=== PATIENT | female | born 1950 | race Caucasian/White ===

== ENCOUNTER 2023-02-02 07:09 | Emergency (ER) | payer OTHER ==
[~2023-02-02] VITALS: Ht 154.9 cm; Wt 52.3 kg
[2023-02-02 07:30] VITALS: TEMP 98.3
[2023-02-02] MEDS ORDERED: SODIUM CHLORIDE 0.9% 1,000 ML IV ONE (07:45)
[2023-02-02] MEDS ORDERED: VITAMIN D PO (07:48)
[2023-02-02] MEDS ORDERED: UNK ANTIDEPRESSANT PO (07:48)
[2023-02-02 08:05] LABS: BASOPHILS % (AUTO) 1.4 % (0.0-2.0); EOSINOPHILS % (AUTO) 4.4 % (1.0-6.0); HEMATOCRIT 36.9 % (36-46); HEMOGLOBIN 12.2 g/dL (12.0-16.0); LYMPHOCYTES # (AUTO) 1.6 K/uL (1.0-4.8); LYMPHOCYTES % (AUTO) 39.1 % (22.0-44.0); MEAN CORPUSCULAR HEMOGLOBIN 30.1 pg (26.0-34.0); MEAN CORPUSCULAR HGB CONC 33.1 G/dL (31.0-37.0); MEAN CORPUSCULAR VOLUME 91 fL (80-100); MONOCYTES # (AUTO) 0.2 K/uL (0.1-1.0); MONOCYTES % (AUTO) 5.9 % (2.0-9.0); NEUTROPHILS % (AUTO) 49.2 % (40.0-70.0); PLATELET COUNT (AUTO) 239 K/uL (150-450); RED BLOOD CELL COUNT(AUTO) 4.05 MIL/uL (4.00-5.20); RED CELL DISTRIBUTION WIDTH 13.9 % (11.5-14.5)
[2023-02-02 08:13] LABS: ANION GAP 9 mmol/L (8-16); CALCIUM, TOTAL 8.9 mg/dL (8.8-10.5); CARBON DIOXIDE 26 mmol/L (22-29); CHLORIDE 103 mmol/L (98-107); CREATININE 0.64 mg/dL (0.60-1.30); GLOMERULAR FILTR. RATE CALC > 60 mL/min (>60); GLUCOSE,RANDOM 92 mg/dL (70-110); POTASSIUM 3.7 mmol/L (3.5-5.1); SODIUM SERUM 138 mmol/L (136-145)
[2023-02-02 08:20] LABS: PROTHROMBIN TIME 10.5 SEC (9.4-11.6)
[2023-02-02 08:36] LABS: B-TYPE NATRIURETIC PEPTIDE 32 pg/mL (0-100)
[2023-02-02 08:38] LABS: ALANINE AMINOTRANSFERASE 17 U/L (12-78); ALBUMIN 3.4 g/dL (3.4-5.0); ALKALINE PHOSPHATASE 79 U/L (46-116); ASPARTATE AMINOTRANSFERASE 22 U/L (15-37); BILIRUBIN,TOTAL 0.2 mg/dL (0.1-1.0); CREATINE KINASE, TOTAL ONLY 77 U/L (26-192); TOTAL PROTEIN, SERUM 6.7 g/dL (6.4-8.2)
[2023-02-02 11:12] VITALS: BP 104/67; PULSE 64; RESP 16
== END 2023-02-02 11:18 | disposition home or self-care (01) ==
LOC: EMS 07:11
DX: R07.89 Other chest pain (principal)
CPT/HCPCS: 99285; 96360; 71045; 80053; 82550; 83880; 84484; 85025; 85610; 85730; 36415; 93005; J7030